=== PATIENT | male | born 1960 | race Caucasian/White ===

== ENCOUNTER 2020-12-06 19:59 | Emergency (ER) | payer MEDICARE, MEDICAID ==
[~2020-12-06] VITALS: Ht 165.1 cm; Wt 126.4 kg
[~2020-12-06 19:59] MED LIST: DICL100G15 TOP
[2020-12-06 20:05] VITALS: BP 157/71
[2020-12-06] MEDS ORDERED: ketorolac trometh. 30mg/ml inj. IM ONE (20:30)
[2020-12-06] MEDS ORDERED: cyclobenzaprine 10mg tablet PO ONE (20:40)
[2020-12-06] MEDS ORDERED: CYCL-1 PO (20:40)
== END 2020-12-06 21:14 | disposition home or self-care (01) ==
LOC: ER 20:00
DX: S39.012A Strain of muscle, fascia and tendon of lower back, initial encounter (principal); G89.29 Other chronic pain; Z79.899 Other long term (current) drug therapy; X58.XXXA Exposure to other specified factors, initial encounter; Y93.89 Activity, other specified; Y92.89 Other specified places as the place of occurrence of the external cause; Y99.8 Other external cause status
CPT/HCPCS: 96372; 99283; J1885

== ENCOUNTER 2020-12-08 11:34 | Emergency (ER) | payer MEDICARE, MEDICAID ==
[~2020-12-08] VITALS: Ht 165.1 cm; Wt 126.4 kg
[~2020-12-08 11:34] MED LIST changes: +CYCL-1 PO
[2020-12-08] MEDS ORDERED: ketorolac tromethamine 15mg/ml inj. IM ONE (13:35)
[2020-12-08] MEDS ORDERED: PRED20TA PO (13:47)
[2020-12-08] MEDS ORDERED: DIAZ-351 PO (13:47)
[2020-12-08] MEDS ORDERED: diazepam 5mg tablet PO ONE (13:50)
== END 2020-12-08 14:31 | disposition home or self-care (01) ==
LOC: ER 11:34
DX: M54.41 Lumbago with sciatica, right side (principal); R20.2 Paresthesia of skin; E11.9 Type 2 diabetes mellitus without complications; G89.29 Other chronic pain; Z79.899 Other long term (current) drug therapy
CPT/HCPCS: 96372; 99283; J1885

== ENCOUNTER 2021-01-03 12:07 | Emergency (ER) | payer MEDICARE, MEDICAID ==
[~2021-01-03] VITALS: Ht 165.1 cm; Wt 127.3 kg
[~2021-01-03 12:07] MED LIST changes: +DIAZ-351 PO; +PRED20TA PO
[2021-01-03 13:00] VITALS: BP 102/56
== END 2021-01-03 14:22 | disposition home or self-care (01) ==
LOC: ER 12:07
DX: R34 Anuria and oliguria (principal); R10.30 Lower abdominal pain, unspecified; E11.9 Type 2 diabetes mellitus without complications; G89.29 Other chronic pain; Z98.890 Other specified postprocedural states; Z90.5 Acquired absence of kidney
CPT/HCPCS: 99284

== ENCOUNTER 2021-01-15 07:45 | Emergency (ER) | payer MEDICARE, MEDICAID ==
[~2021-01-15] VITALS: Ht 165.1 cm; Wt 122.5 kg
[~2021-01-15 07:45] MED LIST changes: -PRED20TA PO
[2021-01-15 08:53] LABS: BASOPHILS # (AUTO) 0.1 X10'3 (0-0.2); BASOPHILS % (AUTO) 0.7 % (0-1); EOSINOPHILS # (AUTO) 0.2 X10'3 (0-0.9); EOSINOPHILS % (AUTO) 1.5 % (0-6); HEMATOCRIT 36.3 % (42.0-52.0); HEMOGLOBIN 11.9 g/dl (14.0-17.9); LYMPHOCYTES # (AUTO) 1.5 X10'3 (1.1-4.8); LYMPHOCYTES % (AUTO) 14.8 % (21-51); MEAN CORPUSCULAR HEMOGLOBIN 28.6 PG (27.0-31.0); MEAN CORPUSCULAR HGB CONC 32.8 g/dL (33.0-36.5); MONOCYTES % (AUTO) 9.9 % (2-12); NEUTROPHILS # (AUTO) 7.4 X10'3 (1.8-7.7); NEUTROPHILS % (AUTO) 73.1 % (42-75); PLATELET COUNT 386 X10'3 (140-440); RED BLOOD COUNT 4.17 X10'6 (4.70-6.10); RED CELL DISTRIBUTION WIDTH 14.2 % (11.5-14.5); WHITE BLOOD COUNT 10.1 X10'3 (4.5-11.0)
[2021-01-15] MEDS ORDERED: normal saline 1000ML IV soln IVB ONE (09:00)
[2021-01-15] MEDS ORDERED: famotidine/PF 10 mg/ml inj IV ONE (09:00)
[2021-01-15] MEDS ORDERED: ondansetron/PF 4mg/2ml inj IV ONE (09:00)
[2021-01-15 09:13] LABS: ALANINE AMINOTRANSFERASE 23 U/L (12-78); ALBUMIN 3.1 G/DL (3.4-5.0); ALBUMIN/GLOBULIN RATIO 0.6 (1.1-1.5); ALKALINE PHOSPHATASE 78 IU/L (46-116); AMYLASE 65 U/L (25-115); ANION GAP 9 (8-16); ASPARTATE AMINO TRANSFERASE 22 U/L (10-37); BILIRUBIN,TOTAL 0.4 MG/DL (0.1-1.0); BLOOD UREA NITROGEN 22 MG/DL (7-18); BUN/CREATININE RATIO 14.1 (5.4-32.0); CALCIUM 9.3 MG/DL (8.5-10.1); CHLORIDE 100 MMOL/L (99-107); CREATININE 1.56 MG/DL (0.60-1.10); GLUCOSE 186 MG/DL (70-104); LIPASE 89 U/L (73-393); POTASSIUM 4.4 MMOL/L (3.5-5.1); SODIUM 135 MMOL/L (135-145); TOTAL CARBON DIOXIDE 26.2 MMOL/L (24-32); TOTAL PROTEIN 7.9 G/DL (6.4-8.2); eGFR 46 ML/MIN
[2021-01-15 09:47] LABS: CLARITY,URINE CLOUDY (Clear); COLOR,URINE YELLOW (Yellow); GLUCOSE, URINE NEGATIVE (Neg); KETONES,URINE NEGATIVE (Neg); LEUKOCYTE ESTERASE ,URINE SMALL (Neg); NITRITES, URINE POSITIVE (Neg); OCCULT BLOOD,URINE TRACE-INTACT (Neg); PH,URINE 5.5 (4.8-8.0); PROTEIN,URINE NEGATIVE (Neg); UROBILINOGEN,URINE 0.2 E.U/dL (0.2-1.0)
[2021-01-15 10:00] LABS: UA COLLECTION TYPE VOIDED
[2021-01-15 10:03] LABS: BACTERIA,URINE 4+ /HPF (Neg); SQUAMOUS EPITHELIAL CELL,UR MODERATE /LPF (FEW)
[2021-01-15 10:05] LABS: MUCUS STRANDS FEW /LPF (Neg); RBC,URINE 0-2 /HPF (0-2); TRANSITIONAL EPI CELLS,URINE FEW /HPF
[2021-01-15 10:06] LABS: WBC CLUMPS,URINE MODERATE /HPF (NEGATIVE); WBC,URINE 50-100 /HPF (0-4)
[2021-01-15] MEDS ORDERED: LEVO500T89 PO (10:19)
--- NOTE | 2021-01-15 10:51 | NUR ---
relieving RN for break, pt is resting quietly on gurney, resp even and unlabored, 1st liter NS infusing w/o, medicated per order
[2021-01-15 11:11] VITALS: BP 120/75
== END 2021-01-15 11:16 | disposition home or self-care (01) ==
LOC: ER 07:46
DX: N39.0 Urinary tract infection, site not specified (principal); R53.1 Weakness; R42 Dizziness and giddiness; E86.0 Dehydration; E11.9 Type 2 diabetes mellitus without complications; G89.29 Other chronic pain; Z98.890 Other specified postprocedural states; Z79.2 Long term (current) use of antibiotics; Z79.899 Other long term (current) drug therapy
CPT/HCPCS: 36415; 74150; 80053; 81001; 82150; 83690; 85025; 87088; 87186; 93005; 96361; 96374; 96375; 99285; J2405; J3490; J7030; 87077

== ENCOUNTER 2022-05-03 08:10 | Day surgery (SDC) | payer MEDICARE, MEDICAID ==
[~2022-05-03] VITALS: Ht 165.1 cm; Wt 125.0 kg
[2022-05-03] MEDS ORDERED: fentaNYL/PF 50MCG/1 ML 2ML syringe ONE (08:19)
[2022-05-03] MEDS ORDERED: MIDAZolam 1 MG/ML 5ML VIAL ONE (08:19)
[2022-05-03 08:20] VITALS: BP 142/96
[2022-05-03] MEDS ORDERED: LISI20TA28 PO (08:39)
[2022-05-03] MEDS ORDERED: GABA-530 PO (08:39)
[2022-05-03] MEDS ORDERED: FLO0.4C PO (08:39)
[2022-05-03] MEDS ORDERED: EZET10TA6 PO (08:39)
[2022-05-03] MEDS ORDERED: ALBU18HF2 INH (08:39)
[2022-05-03] MEDS ORDERED: FAMO20TA8 PO (08:39)
[2022-05-03] MEDS ORDERED: DUTA0.5C40 PO (08:39)
[2022-05-03] MEDS ORDERED: LORA10CA PO (08:39)
[2022-05-03] MEDS ORDERED: ATOR40TA PO (08:39)
[2022-05-03] MEDS ORDERED: SITA100T11 PO (08:39)
[2022-05-03 10:05] VITALS: BP 114/70
[2022-05-03 10:15] VITALS: BP 106/69
[2022-05-03 10:25] VITALS: BP 121/76
== END 2022-05-03 10:38 | disposition home or self-care (01) ==
LOC: GI LAB 08:10
PROVIDERS: ATTEND Internal Medicine Gastroenterology
DX: Z09 Encounter for follow-up examination after completed treatment for conditions other than malignant neoplasm (principal); K63.5 Polyp of colon; K64.8 Other hemorrhoids; Z86.010 Personal history of colon polyps
CPT/HCPCS: 45385; C1773; G0500; J2250; J3010; J7030; Z7512; 88305; 99152; 99153; A4620